=== PATIENT | male | born 1990 | race Two or more races ===

== ENCOUNTER 2019-10-04 21:26 | Emergency (ER) | payer OTHER ==
[~2019-10-04] VITALS: Ht 177.8 cm; Wt 72.6 kg
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
[2019-10-04] MEDS ORDERED: TDAP [DIPH/PERTUSSIS/TET] 0.5 ML VIAL IM ONE (21:48)
[2019-10-04] MEDS ORDERED: LIDOCAINE 1%-EPI 1:100,000 20 ML VIAL ONE (21:57)
[2019-10-04] MEDS: IV NS 0.9% 1,000 ML BAG IV ONE (22:00)
--- NOTE | 2019-10-04 22:01 | NUR ---
[employer] OFFICERS REMAINS AT BEDSIDE.
[2019-10-04] MEDS: TDAP [DIPH/PERTUSSIS/TET] 0.5 ML VIAL IM ONE (22:04)
--- NOTE | 2019-10-04 22:28 | NUR ---
HELEN NEUMANN AT BEDSIDE FOR TAZER DART PRONG REMOVAL.
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
--- NOTE | 2019-10-04 23:51 | NUR ---
Note lisa in [facility] - 10/05/19 at 0001 by DAVIS Patient discharged to home in stable condition. Written and verbal after care instructions given. Patient verbalizes understanding of instruction. Pt left in custody. Pt ambuated with steady gait.
[2019-10-05 00:01] VITALS: BP 119/75
--- NOTE | 2019-10-05 00:01 | NUR ---
Patient discharged in stable condition. Written and verbal after care instructions given. Patient verbalizes understanding of instruction. Pt in custody. Ambulated with steady gait.
== END 2019-10-05 00:02 ==
LOC: ER 21:26
DX: S30.851A Superficial foreign body of abdominal wall, initial encounter (principal); S00.81XA Abrasion of other part of head, initial encounter; S60.511A Abrasion of right hand, initial encounter; S80.211A Abrasion, right knee, initial encounter; X58.XXXA Exposure to other specified factors, initial encounter; Y93.89 Activity, other specified; Y92.89 Other specified places as the place of occurrence of the external cause; Y99.8 Other external cause status
CPT/HCPCS: 10120; 70450; 70486; 71100; 73130; 73564; 90471; 90715; 93005; 99285; J3490; J7030